=== PATIENT | male | born 1990 | race Two or more races ===

== ENCOUNTER 2024-10-28 13:34 | Emergency (ER) | payer OTHER ==
[~2024-10-28] VITALS: Ht 162.6 cm; Wt 78.0 kg
[2024-10-28] MEDS ORDERED: IBUP-1490 PO (14:00)
[2024-10-28] MEDS ORDERED: KETOROLAC TROMETHAMINE 15 MG/ML VIAL ONE (14:12)
[2024-10-28] MEDS: KETOROLAC TROMETHAMINE 15 MG/ML VIAL IM ONE (14:18)
[2024-10-28 14:46] VITALS: BP 142/82; TEMP 97.9; O2SAT 98
== END 2024-10-28 14:59 | disposition home or self-care (01) ==
LOC: ER 13:51
DX: R51.9 Headache, unspecified (principal); M54.2 Cervicalgia; M54.50 Low back pain, unspecified; V63.6XXA Passenger in heavy transport vehicle injured in collision with car, pick-up truck or van in traffic accident, initial encounter; Y93.89 Activity, other specified; Y92.488 Other paved roadways as the place of occurrence of the external cause; Y99.8 Other external cause status
CPT/HCPCS: 99283; 96372; J1885